=== PATIENT | female | born 1975 | race Caucasian/White ===

== ENCOUNTER 2020-12-29 14:36 | Outpatient (REF) | payer OTHER, SELFPAY ==
--- NOTE | ~2020-12-29 | MM_ITS ---
EXAMINATION: MM SCREENING DIGITAL BREAST TOMOSYNTHESIS, BILATERAL CLINICAL INFORMATION: Screening. Asymptomatic. The lifetime risk of breast cancer based on the Tyrer-Cuzick Model is 9.1%. COMPARISON: Mammography: February 26, 2019 and studies dating back to January 18, 2014 TECHNIQUE: Digital breast tomosynthesis is performed in both the craniocaudal and mediolateral oblique views along with computer-aided detection (CAD). Synthesized 2D images are generated from the tomosynthesis. FINDINGS: There are scattered areas of fibroglandular density (ACR BI-RADS breast composition Category b). There are no significant masses, abnormal calcifications, or other abnormalities. MM/MM tomosynthesis screening BI IMPRESSION: There are no significant changes from prior study. ASSESSMENT: BI-RADS 1: Negative RECOMMENDATION: Routine annual mammography screening. This patient's information was entered into a reminder system with a target due date for their next mammogram.
== END 2020-12-29 14:37 | disposition home or self-care (01) ==
LOC: HO.MAMMO 14:36
PROVIDERS: Visit Provider Internal Medicine Geriatric Medicine
DX: Z12.31 Encounter for screening mammogram for malignant neoplasm of breast (principal)
CPT/HCPCS: 77063; 77067

== ENCOUNTER 2022-08-25 10:00 | Outpatient (REF) | payer OTHER, SELFPAY ==
--- NOTE | ~2022-08-25 | MM_ITS ---
EXAMINATION: MM SCREENING DIGITAL BREAST TOMOSYNTHESIS, BILATERAL CLINICAL INFORMATION: Screening. Asymptomatic. The lifetime risk of breast cancer based on the Tyrer-Cuzick Model is 7%. COMPARISON: Mammography: 12/29/2020, 02/26/2019, 03/07/2017, 01/24/2016 TECHNIQUE: Digital breast tomosynthesis is performed in both the craniocaudal and mediolateral oblique views along with computer-aided detection (CAD). Synthesized 2D images are generated from the tomosynthesis. FINDINGS: There are scattered areas of fibroglandular density (ACR BI-RADS breast composition Category b). There are no significant masses, abnormal calcifications, or other abnormalities. Parenchymal pattern is similar to prior studies. There is no developing density or architectural abnormality. There are scattered minor asymmetries similar to prior studies. The axilla and skin contours are unremarkable. No significant changes. MM/MM tomosynthesis screening BI IMPRESSION: -No significant changes from prior studies. -No mammographic evidence of malignancy. ASSESSMENT: BI-RADS 2: Benign RECOMMENDATION: Routine annual mammography screening. This patient's information was entered into a reminder system with a target due date for their next mammogram.
== END 2022-08-25 10:01 | disposition home or self-care (01) ==
LOC: HO.MAMMO 10:00
PROVIDERS: PCP Internal Medicine Geriatric Medicine; Visit Provider Internal Medicine Geriatric Medicine
DX: Z12.31 Encounter for screening mammogram for malignant neoplasm of breast (principal)
CPT/HCPCS: 77063; 77067

== ENCOUNTER 2022-12-28 13:08 | Outpatient (REF) | payer OTHER, SELFPAY ==
--- NOTE | ~2022-12-28 | XR_ITS ---
EXAMINATION: XR KNEE, BILATERAL CLINICAL INFORMATION: Chronic pain of both knees. COMPARISON: X-ray of the left knee May 2016. TECHNIQUE: 4 views of each knee. FINDINGS: RIGHT KNEE: Patellofemoral Compartment: There are marginal osteophytes without joint space narrowing indicative of mild osteoarthritis. The medial and lateral compartments are normal. No effusion. LEFT KNEE: Patellofemoral Compartment: There are marginal osteophytes without joint space narrowing indicative of mild osteoarthritis. Medial Compartment: There are marginal osteophytes with mild joint space narrowing indicative of uqtf-co-qtxqjhpl osteoarthritis. Lateral Compartment: Small marginal osteophytes without joint space narrowing indicative of mild arthrosis. Possible subchondral cysts in the weightbearing lateral femoral condyle. Overall degenerative changes, slightly progressed compared to prior. XR/XR knee RT 4V IMPRESSION: 1. Mild osteoarthritis of the right knee. 2. Ovlf-da-nufshhke osteoarthritis of the left knee. Degenerative changes, slightly progressed compared with the 2017 examination.
--- NOTE | ~2022-12-28 | XR_ITS ---
EXAMINATION: XR KNEE, BILATERAL CLINICAL INFORMATION: Chronic pain of both knees. COMPARISON: X-ray of the left knee May 2016. TECHNIQUE: 4 views of each knee. FINDINGS: RIGHT KNEE: Patellofemoral Compartment: There are marginal osteophytes without joint space narrowing indicative of mild osteoarthritis. The medial and lateral compartments are normal. No effusion. LEFT KNEE: Patellofemoral Compartment: There are marginal osteophytes without joint space narrowing indicative of mild osteoarthritis. Medial Compartment: There are marginal osteophytes with mild joint space narrowing indicative of pgil-ff-pozjdprr osteoarthritis. Lateral Compartment: Small marginal osteophytes without joint space narrowing indicative of mild arthrosis. Possible subchondral cysts in the weightbearing lateral femoral condyle. Overall degenerative changes, slightly progressed compared to prior. XR/XR knee LT 4V IMPRESSION: 1. Mild osteoarthritis of the right knee. 2. Elsl-gr-lwkjrece osteoarthritis of the left knee. Degenerative changes, slightly progressed compared with the 2017 examination.
[2022-12-30 13:41] LABS: H Pylori Breath Test Negative (Negative)
== END 2022-12-28 13:09 | disposition home or self-care (01) ==
LOC: HO.HHCX 13:08
PROVIDERS: Visit Provider Internal Medicine Geriatric Medicine
DX: K21.9 Gastro-esophageal reflux disease without esophagitis (principal); Z86.19 Personal history of other infectious and parasitic diseases; M25.561 Pain in right knee; M25.562 Pain in left knee; G89.29 Other chronic pain
CPT/HCPCS: 73564; 83013

== ENCOUNTER 2022-12-29 07:47 | Outpatient (REF) | payer OTHER, SELFPAY ==
[2022-12-29 09:04] LABS: Cholesterol 225 mg/dL (<200); HDL Cholesterol 61 mg/dL (>40); LDL Cholesterol Calculated 143 mg/dL (<100); Triglycerides 105 mg/dL (<150)
== END 2022-12-29 07:48 | disposition home or self-care (01) ==
LOC: HO.LAB 07:47
PROVIDERS: PCP Internal Medicine Geriatric Medicine; Visit Provider Internal Medicine Geriatric Medicine
DX: Z13.220 Encounter for screening for lipoid disorders (principal); Z13.6 Encounter for screening for cardiovascular disorders
CPT/HCPCS: 36415; 80061

== ENCOUNTER 2023-06-13 10:41 | Outpatient (REF) | payer OTHER, SELFPAY ==
[2023-06-16 07:43] LABS: TS Negative Control Passed; TS Panel A 0; TS Panel B 0; TS Positive Control Passed; TSpotTB Negative (Negative)
== END 2023-06-13 10:42 | disposition home or self-care (01) ==
LOC: HO.HHCL 10:41
PROVIDERS: Visit Provider Internal Medicine
DX: Z20.1 Contact with and (suspected) exposure to tuberculosis (principal)
CPT/HCPCS: 36415; 86481

== ENCOUNTER 2023-10-04 11:55 | Outpatient (REF) | payer OTHER, SELFPAY | END 2023-10-04 11:56 | disposition home or self-care (01) | LOC: HO.MAMMO 11:55 | PROVIDERS: PCP Internal Medicine Geriatric Medicine; Visit Provider Internal Medicine Geriatric Medicine | DX: Z12.31 Encounter for screening mammogram for malignant neoplasm of breast (principal) | CPT/HCPCS: 77063; 77067 ==

== ENCOUNTER → 2023-10-04 12:15 | Outpatient (BNV) | payer OTHER, SELFPAY | PROVIDERS: PCP Internal Medicine Geriatric Medicine; Visit Provider Radiology Diagnostic Radiology | DX: Z12.31 Encounter for screening mammogram for malignant neoplasm of breast (principal) | CPT/HCPCS: 77063; 77067 ==

== ENCOUNTER 2024-01-10 07:31 | Outpatient (REF) | payer OTHER, SELFPAY ==
[2024-01-10 08:40] LABS: Cholesterol 206 mg/dL (<200); HDL Cholesterol 56 mg/dL (>40); LDL Cholesterol Calculated 129 mg/dL (<100); Triglycerides 109 mg/dL (<150)
== END 2024-01-10 07:32 | disposition home or self-care (01) ==
LOC: HO.LAB 07:31
PROVIDERS: PCP Internal Medicine Geriatric Medicine; Visit Provider Internal Medicine Geriatric Medicine
DX: Z13.220 Encounter for screening for lipoid disorders (principal)
CPT/HCPCS: 36415; 80061

== ENCOUNTER 2024-09-04 13:04 | Outpatient (AMB) | payer OTHER, SELFPAY ==
[2024-09-04 13:08] VITALS: BP 144/72; PULSE 82; BMI 25.8
--- NOTE | 2024-09-04 13:08 | MHC.OFFVIS ---
Vital Signs 09/04/24 13:08 Height 4 ft 11 in Weight 127 lb 13.89 oz BMI 25.8 BP 144/72 H Blood Pressure Location Lt brachial Position Sitting Pulse 82 Intake Visit Reasons: [place] Screening Intake Note: Leslie presents in the office as a new patient for a colonoscopy screening. CC: She states that she is not having any issues at this time. Putty Mixer Required: Yes Putty Mixer Name: Bladimir [id number] Information Interpreted: non-clinical & clinical Allergies minoxidil Allergy (Severe, Verified 09/04/24 13:10) Rash Iodinated Contrast Media [IV Dye, Iodine Containing Contrast ] Allergy (Mild, Unverified 09/04/24 13:10) Isovue 370 - 85cc: PATIENT DEVELOPED HIVES ON FACE ct scan contrast Allergy (Unknown, Uncoded 09/04/24 13:10) swelling Medication List - Last Reconciled 09/04/24 by Renetta Ryan CNP [AminoMar C PO DAILY] HPI HPI [place] Screening: Details: Patient is a 49-year-old female with PMH of alopecia. Referred by PCP for pre colonoscopy screening. Leslie is here for a pre-colonoscopy screening, her first colonoscopy. She reports having daily bowel movements with no difficulty or straining. She does not experience loose stools unless after eating certain foods. She denies any blood in stool, heartburn, or chest pain. However, she sometimes has acid reflux triggered by certain foods, which is relieved by drinking milk or taking milk of magnesia. She denies regurgitation, difficulty swallowing, abdominal pain (except during menstrual cycle), nausea, vomiting, or fever. Vital signs indicate a mildly elevated BP at 144/72, likely due to physical activity before the appointment. Patient denies: appetite changes, regurgitation, dysphasia, unintentional wt loss, ab pain or melena/hematochezia. Social History -Alcohol/Tobacco/Drug Use: Minimal alcohol consumption, no tobacco or recreational drug use - family hx as below -denies personal hx of CA -denies significant cardiopulmonary history -tolerated anesthesia in the past without difficulty. PFSH Medical History (Updated 09/04/24 @ 16:31 by Renetta Ryan CNP) Colon cancer screening Alopecia Family History (Updated 09/04/24 @ 13:41 by Renetta Ryan CNP) Father Stomach cancer Social History Household Members: None Alcohol intake: current Alcohol intake frequency: holidays/special occasions only Patient Tobacco Use Status: Never used Tobacco Review of Systems Const Reports as per [facility] ENT Reports as per HPI Card Reports as per HPI Resp Reports as per HPI GI Reports as per [facility] Reports as per HPI Physical Exam Vital Signs: Last Vital Signs Pulse 82 09/04/24 13:08 BP 144/72 H 09/04/24 13:08 BMI result Body Mass Index 25.8 Const General: healthy appearing, no acute distress and well developed Nutritional Appearance: well nourished Orientation/consciousness: patient oriented x3 HEENT Head: Yes normal to inspection, Yes normocephalic and Yes atraumatic Face and sinus: Yes normal facial exam Eyes General: appearance normal, both eyes and all related structures Neck Neck: Yes normal visual inspection Resp Effort & Inspection: normal respiratory effort, able to speak in complete sentences, no tracheal deviation and symmetric chest movement Auscultation: clear to auscultation bilaterally Cardio Jugular venous distension: no JVD Rate: regular rate Rhythm: regular rhythm Heart sounds: S1 normal heart sound present, S2 normal heart sound present, no gallops and no murmurs GI Inspection: Yes normal to inspection and No distended Palpation (GI): Soft to palpation, not firm, nontender and No hepatosplenomegaly present Auscultation: normal bowel sounds Neuro General: patient oriented x3 Gait exam (Neuro): Normal gait present Psych Appearance: grossly normal Mental Status: mental status grossly normal Speech and movement: Normal speech and movement present Affect: normal affect Attitude: cooperative Thought process: Normal thought process present Thought content: Normal thought content present Insight: Good insight present (Psych) Judgement: Good judgement present (Psych) Assessment & Plan Assessment & Plan (1) Colon cancer screening: Code(s): Z12.11 - Encounter for screening for malignant neoplasm of colon Category: Medical Plan: index screening colonoscopy. Diagnostic Tests: Prescriptions for laxative tablets and Miralax sent to pharmacy; instructions for Gatorade purchase and clear liquid diet given. Patient educated on procedure preparation, including avoiding certain foods and ensuring clear liquid intake. Advised on necessity for ride post-procedure due to sedation. Plan Follow-up as needed after colonoscopy Time: I spent a total of 30 minutes on the date of encounter which includes: Preparing to see the patient (reviewed previous documentation, test results and medical history) Performing a medically appropriate exam and/or evaluation Ordering medications, tests, and procedures Documenting clinical information in the health record Medications: New bisacodyl Take four tablets once for 1 day per colonoscopy instructions 5 mg PO ONCE 4 tabs 0RF 1 day polyethylene glycol 3350 (Miralax) per colonoscopy prep instructions 238 grams PO ONCE 238 grams 0RF Coding Level of Care Code New Pt New Pt Level 3 (41982) Patient Type New Diagnoses Colon cancer screening Z12.11
--- OUTSIDE RECORDS SUMMARY | 2024-09-04 13:14 | XMS_ITS | Clinical Summary ---
Author Organization [employer] Address [address] [place] [address] Care Team Providers Care Shallot Cleaner Name Role Phone Name, Guilherme TUCKER Primary Care Provider [phone] Allergies Active Allergy Reactions Criticality Noted Date Comments Minoxidil Rash Low 01/27/2020 Medications omeprazole OTC (PriLOSEC OTC) 20 MG EC tablet Take 1 tablet (20 mg) by mouth before breakfast. Do not crush, chew, or split. 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/2022 Nausea and vomiting 11/04/2017 Carpal tunnel syndrome 08/07/2016 Joint pain 01/24/2016 Depressive disorder 02/21/2012 Rosacea 02/21/2012 Immunizations Immunization Administration Dates Next Due Hep B, adult 01/10/2004,02/16/2003,09/21/2002 Influenza Injectable Quadriv alant Preservative Free IIV4 MDCK 01/22/2020 Influenza injectable quadriv alent preservative free 01/23/2021 TD (adult), 2 Lf tetanus tox oid, preservative free, adsorbed 09/21/2002 Td (adult), 5 Lf tetanus tox oid, preservative free, adsorbed 01/05/2013 Tdap 01/03/2024 Family History Medical History Relation Name Comments Stomach cancer Father Stomach cancer Paternal Grandmother Relation Name Status Comments Father Paternal Grandmother Social History Tobacco Use Types Packs/Day Years Used Date Smoking Tobacco: Never Passive Smoke Exposure: Never Smokeless Tobacco: Never Tobacco Cessation:Counseling Given: Not Answered Alcohol Use Standard Drinks/Week Comments Yes 0 (1 standard drink = 0.6 oz pur e alcohol) socially Depression Answer Date Recorded Patient Health Questionnaire-9 Score 0 08/14/2022 Housing Stability Answer Date Recorded What is your housing situation today? I have nathan benton 02/05/[address] you li ve. Do you have problems with any of the following? None of the above 02/05/2023 Food Insecurity Answer Date Recorded Within the past 12 months, y ou worried that your food would run out before you got money to buy more: Never True 02/05/2023 Within the past 12 months,th e food you bought just didn't last and you didn't have enough money to get more: Never True Transportation Answer Date Recorded In the past 12 months, has l ack of transportation kept you from medical appts, meetings, work or from getting things needed for daily living? No 02/05/2023 Utilities Answer Date Recorded In the past 12 months, has t he electric, gas, oil or water company threatened to shut off services in your home? No 02/05/2023 Depression Answer Date Recorded Patient Health Questionnaire-2 Score 0 08/14/2022 Comments No Sex and Gender Information Value Date Recorded Sex Assigned at Female 02/05/2022 10:16 AM EDT Legal Sex Female 10:16 AM EDT Gender Identity Female 02/05/2022 10:16 AM EDT Sexual Orientation Straight 02/05/2022 10 :16 AM EDT Last Filed Vital Signs Vital Sign Reading Time Taken Comments Blood Pressure 130/82 01/03/2024 12:09 PM EDT Pulse 74 01/03/2024 11:36 AM EDT Temperature 36.7 ??C (98.1 ??F) 01/03/2024 11:36 AM E DT Respiratory Rate 20 01/03/2024 11:36 AM EDT Oxygen Saturation 98% 01/03/2024 11:36 AM EDT Inhaled Oxygen Concentration - - Weight 56.8 kg (125 lb 3.2 oz) 01/03/2024 11:36 AM EDT Height 149.9 cm (4' 11 ) 01/03/2024 11:36 AM EDT Body Mass Index 25.29 01/03/2024 11:36 AM EDT Plan of Treatment Health Maintenance Due Date Last Done Comments CT Colonography 1974 Colonoscopy 1974 Colorectal Cancer Screening 1974 FIT DNA/Cologuard 1974 FIT 1974 FOBT 1974 HIV Screening 1974 Sigmoidoscopy 1974 Disability Screening 1974 Alcohol/Substance Use Screening 1986 Family Planning (PISQ) 1989 Hepatitis C Screening 01/12/1992 Depression Screening 08/15/2023 08/14/2022, 08/15/19 23 SDOH Screening 08/15/2023 08/14/2022 COVID-19 Vaccine ( season) 2023 03/28/2021, 07/16/2020 Influenza Vaccine (#1) 2023 01/23/2021, 2019 Pneumococcal Vaccine: 50+ Years (1 of 1 - PCV) 01/12/2024 Zoster Vaccines (1 of 2) 01/12/2024 Tobacco Screening 01/02/2025 01/03/2024 Pap Smear 08/28/2025 08/28/2022 Mammogram 10/03/2025 10/04/2023, 08/07, 08/25/2022, Additional history exists Cervical Cancer Screening 08/29/2027 HPV/Cotest 08/29/2027 08/28/2022 DTaP/Tdap/Td Vaccines (2 - Td or Tdap) 01/02/2034 01/03/2024, 01/05/2013, 09/21/2002 RSV Patients and Patients Aged 60 years or older (1 - 1-dose 75+ series) 2049 Hepatitis B Vaccines Completed 01/10/2004, 02/16/2003, 09/21/2002 HIB Vaccines Aged Out No longer eligi ble based on patient's age to complete this topic HPV Vaccines Aged Out No longer eligi ble based on patient's age to complete this topic Hepatitis A Vaccines Aged Out No long er eligible based on patient's age to complete this topic IPV Vaccines Aged Out No longer eligi ble based on patient's age to complete this topic Meningococcal B Vaccine Aged Out No l onger eligible based on patient's age to complete this topic Meningococcal Vaccine Aged Out No ann marie anthony eligible based on patient's age to complete this topic RSV under 20 months Aged Out No longe r eligible based on patient's age to complete this topic Rotavirus Vaccines Aged Out No longer eligible based on patient's age to complete this topic Procedures Procedure Name Priority Date/Time Associated Diagnosis Comments BI MAMMOGRAM SCREENING TOMOSYNTHESIS BILATERAL Routine 10/04/2023 12:14 PM EDT IMAGE-GUIDED PAP W/AGE BASED SCR PROTOCOLS Routine 08/28/2022 3:22 PM EDT Cervical cancer screening from Last 3 Months or Most Recently Relevant to Health Maintenance Results * BI Mammogram Screening Tomosynthesis Bilateral (10/04/2023 12:14 PM EDT) Anatomical Region Laterality Modality Breast Bilateral Mammography 10/04/2023 12:1 4 PM EDT Narrative 11/01/2023 11:21 AM EDT ? [facility] [place] ? [address] ?[place] [address] ? Mammography Report ? Signed ? Patient: Kaz CastroRositaLeslie ?MR#: M ?? [id number] ? : 1975 ?Acct:[id number] ? Age/Sex: 48 / F ?ADM Date: 06/28/24 ? Loc: HO.MAMMO ? Attending Dr: Guilherme Name MD ? Ordering Physician: Name,Guilherme MD ?Results: 1Negative ? Date of Service: 10/04/23 ?Follow Up: 1 Year From Orig ?? inal Mammogram ? Procedure(s): MM tomosynthesis screening BI ?? Accession Number(s): [id number] ? cc: Name,Guilherme TUCKER ? EXAMINATION: ?? MM SCREENING DIGITAL BREAST TOMOSYNTHESIS, BILATERAL ? CLINICAL INFORMATION: ? Screening. Asymptomatic. ? COMPARISON: ?? Mammography: This study is compared with prior exams dating back to ?? 2017. ? TECHNIQUE: ?? Digital breast tomosynthesis is performed in both the craniocaudal and ?? mediolateral oblique views along with computer-aided detection (CAD). ?? Synthesized 2D images are generated from the tomosynthesis. ? FINDINGS: ?? There are scattered areas of fibroglandular density (ACR BI-RADS breast ?? composition Category b). ? There are no significant masses, abnormal calcifications, or other ?? abnormalities. ? MM/MM tomosynthesis screening BI ?? IMPRESSION: ?? No mammographic evidence of malignancy. ? ASSESSMENT: ? BI-RADS BI-RADS 1 - Negative ? RECOMMENDATION: ?? Routine annual mammography screening. ? 1 year F/U ? This examination should not preclude the clinical evaluation of a ?? suspicious palpable abnormality. ? This patient's information was entered into a reminder system with a ?? target due date for their next mammogram. ? Dictated By: ?Melinda Stanton MD ? Signed By: ?<Electronically signed by Melinda Stanton MD in OV> ? 11/01/23 1117 ? DD/ 1214 ? TD/TT: ? [employer] Piping Designer: ? Procedure Note Esperanza, Image - 11/01/2023 [facility] [address] [place] [address] [place] [address] Mammography Report Signed Patient: Leslie Lofton#: M [id number] : 1975Acct:[id number] Age/Sex: 48 / FADM Date: 10/04/23 Loc: HO.MAMMO Attending Dr: Guilherme Harmon MD Ordering Physician: Guilherme Harmonesults: 1Negative Date of Service: 10/04/23Follow Up: 1 Year From Orig inal Mammogram Procedure(s): MM tomosynthesis screening BI Accession Number(s): [id number] cc: Guilherme Harmon MD EXAMINATION: MM SCREENING DIGITAL BREAST TOMOSYNTHESIS, BILATERAL CLINICAL INFORMATION: Screening. Asymptomatic. COMPARISON: Mammography: This study is compared with prior exams dating back to 2017. TECHNIQUE: Digital breast tomosynthesis is performed in both the craniocaudal and mediolateral oblique views along with computer-aided detection (CAD). Synthesized 2D images are generated from the tomosynthesis. FINDINGS: There are scattered areas of fibroglandular density (ACR BI-RADS breast composition Category b). There are no significant masses, abnormal calcifications, or other abnormalities. MM/MM tomosynthesis screening BI IMPRESSION: No mammographic evidence of malignancy. ASSESSMENT: BI-RADS BI-RADS 1 - Negative RECOMMENDATION: Routine annual mammography screening. 1 year F/U This examination should not preclude the clinical evaluation of a suspicious palpable abnormality. This patient's information was entered into a reminder system with a target due date for their next mammogram. Dictated By: Melinda Stanton MD Signed By: <Electronically signed by Melinda Stanton MD in OV> 11/01/23 1117 DD/ 1214 TD/TT: [employer] Piping Designer: Guilherme Harmon MD IM BI PROCEDURES Final Result * Image-Guided Pap with Age-Based Screening Protocols (08/28/2022 3:22 PM EDT) Comment [facility] Comment: This order for age-based cervical cancer and STI screening follows ACOG guidelines(PB 168, 140, VTV564). See individual assays for performing site location. Clinical Information: None given [facility] LMP: NONE GIVEN [facility] Prev. PAP: NONE GIVEN [facility] Prev. BX: NONE GIVEN [facility] SOURCE: None given [facility] Statement Of Adequacy: [facility] Comment: Satisfactory for evaluation. Endocervical/transformation zone component present. Interpretation/ Result: Negative for intraepithelial lesion or malignancy. [facility] Infection Shift in vaginal jeniffer suggestive of bacterial vaginosis. [employer] [facility] COMMENT: This Pap test has been evaluated with computer assisted technology. [employer] Cytotechnologis t: [facility] Comment: KR, CT(ASCP) CT screening location: [address] ??[address] (Always Message) [facility] Comment: EXPLANATORY NOTE: The Pap is a screening test for cervical cancer. It is not a diagnostic test and is subject to false negative and false positive results. It is most reliable when a satisfactory sample, regularly obtained, is submitted with relevant clinical findings and history, and when the Pap result is evaluated along with historic and current clinical information. HPV nRNA E6/E7 Not Detected Not Detected [facility] Comment: Methodology: Assistant Front End Manager-Mediated Amplification This assay detects E6/E7 viral messenger RNA (mRNA) from 14 high-risk HPV types (16,18,31,33,35,39,45,51,52,56,58,59,66,68). Cervical sources are required for HPV testing. If a vaginal source from a patient who has had a total hysterectomy with removal of cervix was submitted, please contact the testing laboratory for alternative testing options. For additional information, please refer to http://education.[employer]/faq/ZCK140e2 (This link if provided for information/ educational purposes only.) Pap Vial 08/28/2022 3:22 PM EDT 08/29/2022 1:29 PM EDT Smita [facility] LAB BLOOD ORDERABLES Whitney staples Result [employer] [address], [place] [address] [facility] [address] [place] [address] from Last 3 Months or Most Recently Relevant to Health Maintenance Insurance , [address] [place] [address] Care Teams Shallot Cleaner Relationship Specialty Start Date End Date Name, MD Guilherme [address] [place] [address] PCP - General Family Medicine 07/13/15
== END 2024-09-04 13:50 | disposition home or self-care (01) ==
PROVIDERS: PCP Internal Medicine Geriatric Medicine; Visit Provider Nurse Practitioner Family
DX: Z12.11 Encounter for screening for malignant neoplasm of colon (principal); Z01.818 Encounter for other preprocedural examination
CPT/HCPCS: 99203

== ENCOUNTER 2024-11-27 12:06 | Outpatient (REF) | payer OTHER, SELFPAY ==
--- NOTE | ~2024-11-27 | MM_ITS ---
EXAMINATION: MM SCREENING DIGITAL BREAST TOMOSYNTHESIS, BILATERAL CLINICAL INFORMATION: Screening. Asymptomatic. COMPARISON: Mammography: Comparison is made with available priors TECHNIQUE: Digital breast mammography with tomosynthesis is performed in both the craniocaudal and mediolateral oblique views along with computer-aided detection (CAD). FINDINGS: There are scattered areas of fibroglandular density (ACR BI-RADS breast composition Category b). There are no significant masses, abnormal calcifications, or other abnormalities. MM/MM tomosynthesis screening BI IMPRESSION: No mammographic evidence of malignancy. ASSESSMENT: BI-RADS BI-RADS 1 - Negative RECOMMENDATION: Routine annual mammography screening. 1 year F/U This examination should not preclude the clinical evaluation of a suspicious palpable abnormality. This patient's information was entered into a reminder system with a target due date for their next mammogram. Electronically signed by: Lyric Peterson DO 12/01/2024 06:52 PM EDT
--- OUTSIDE RECORDS SUMMARY | 2024-11-27 12:09 | XMS_ITS | Clinical Summary ---
Author Organization [employer] Address [address] [place] [address] Care Team Providers Care Four Slide Machine Setter Name Role Phone Name, Guilherme TUCKER Primary Care Provider [phone] Allergies Active Allergy Reactions Criticality Noted Date [...] 74 01/03/2024 11:36 AM EDT Temperature 36.7 C (98.1 F) 01/03/2024 11:36 AM EDT Respiratory Rate 20 01/03/2024 11:36 AM EDT Oxygen Saturation 98% 01/03/2024 11:36 AM EDT Inhaled Oxygen Concentration - - Weight 56.8 kg (125 lb 3.2 oz) 01/03/2024 11:36 AM EDT Height 149.9 cm (4' 11 ) 01/03/2024 11:36 AM EDT Body Mass Index 25.29 01/03/2024 11:36 AM EDT Plan of Treatment Upcoming Encounters Date Type Department Care Team (Late st Contact Info) Description 01/08/2025 2:45 PM EDT Office Visit [facility] [address] [place] [address] Name, MD Guilherme [address] [place] [address] Health Maintenance Due Date Last Done Comments CT Colonography 1974 Colonoscopy 1974 Colorectal Cancer Screening 1974 FIT DNA/Cologuard 1974 FIT 1974 FOBT 1974 HIV Screening 1974 Sigmoidoscopy 1974 Disability Screening 1974 Alcohol/Substance Use Screening 1986 Family Planning (PISQ) 1989 Hepatitis C Screening 01/12/1992 Depression Screening 08/15/2023 08/14/2022, 08/15/19 23 SDOH Screening 08/15/2023 08/14/2022 COVID-19 Vaccine ( season) 2023 03/28/2021, 07/16/2020 Pneumococcal Vaccine: 50+ Years (1 of 1 - PCV) 01/12/2024 Zoster Vaccines (1 of 2) 01/12/2024 Influenza Vaccine (#1) 2024 01/23/2021, 2019 Tobacco Screening 01/02/2025 01/03/2024 Pap Smear 08/28/2025 08/28/2022 Mammogram 10/03/2025 10/04/2023, 05/, 08/25/2022, Additional history exists Cervical Cancer Screening [...] Meningococcal Vaccine Aged Out No ann marie anthoyn eligible based on patient's age to complete [...] PM EDT Narrative 11/01/2023 11:21 AM EDT [facility] [address] [place] [address] Mammography Report Signed Patient: Leslie Lofton MR#: [id number] : 1975 Acct:[id number] Age/Sex: 48 / F ADM Date: 10/04/23 Loc: AMAYAO Attending Dr: Guilherme Harmon MD Ordering Physician: Guilherme Harmon MD Results: 1Negative Date of Service: 10/04/23 Follow Up: 1 Year From Orig inal Mammogram Procedure(s): MM tomosynthesis screening BI Accession Number(s): [id number] cc: Guilherme Harmon MD EXAMINATION: MM SCREENING [...] in OV> 11/01/23 1117 DD/ 1214 TD/TT: Tree Trimming Supervisor: Procedure Note Donotuseinterpreter, Image - 11/01/2023 [facility] [address] [place], [place] [address] Mammography Report Signed Patient: Leslie LoftonMR#: [id number] : 1975Acct:[id number] Age/Sex: 48 / FADM Date: 10/04/23 Loc: JUSTINO Attending Dr: Guilherme Harmon MD Ordering Physician: Guilherme Harmon MDResults: 1Negative Date of Service: 10/04/23Follow Up: 1 Year From Orig inal Mammogram Procedure(s): MM tomosynthesis screening BI Accession Number(s): [id number] cc: Guilherme Harmon MD EXAMINATION: MM SCREENING [...] in OV> 11/01/23 1117 DD/ 1214 TD/TT: Tree Trimming Supervisor: us Guilherme Name IMG BI PROCEDURES Final Result * Image-Guided Pap with Age-Based Screening Protocols (08/28/2022 3:22 PM EDT) Comment [employer] Comment: This order for age-based cervical cancer and STI screening follows ACOG guidelines(PB 168, 140, ZZJ285). See individual assays for performing site location. Clinical Information: None given [facility] LMP: NONE GIVEN [facility] Prev. PAP: NONE GIVEN [facility] Prev. BX: NONE GIVEN [facility] SOURCE: None given [facility] Statement Of Adequacy: [facility] Comment: Satisfactory for evaluation. Endocervical/transformation zone component present. Interpretation/ Result: Negative for intraepithelial lesion or malignancy. [employer] [facility] Infection Shift in vaginal jeniffer suggestive of bacterial vaginosis. [facility] COMMENT: This Pap test has been evaluated with computer assisted technology. [facility] Cytotechnologis t: [facility] Comment: KR, CT(ASCP) CT screening location: [place] [address] (Always Message) [employer] Comment: EXPLANATORY NOTE: The Pap is a [...] HPV nRNA E6/E7 Not Detected Not Detected [employer] [facility] Comment: Methodology: Screenplay Writer-Mediated Amplification This assay detects E6/E7 viral messenger RNA (mRNA) from 14 high-risk HPV types (16,18,31,33,35,39,45,51,52,56,58,59,66,68). Cervical sources are required for HPV testing. If a vaginal source from a patient who has had a total hysterectomy with removal of cervix was submitted, please contact the testing laboratory for alternative testing options. For additional information, please refer to http://education.Accountable/faq/EKW341o1 (This link if provided for information/ educational purposes only.) Pap Vial 08/28/2022 3:22 PM EDT 08/29/2022 1:29 PM EDT Smita BAUGH LAB BLOOD ORDERABLES Whitney staples Result [facility] [address], [place] [address] [facility] [address] [place] [address] from Last 3 Months or Most Recently Relevant to Health Maintenance Insurance [facility] Care Teams Four Slide Machine Setter Relationship Specialty Start Date End Date Name, MD Guilherme [address] [place] [address] PCP - General Family Medicine 07/13/15
== END 2024-11-27 12:07 | disposition home or self-care (01) ==
LOC: HO.MAMMO 12:06
PROVIDERS: PCP Internal Medicine Geriatric Medicine; Visit Provider Internal Medicine Geriatric Medicine
DX: Z12.31 Encounter for screening mammogram for malignant neoplasm of breast (principal)
CPT/HCPCS: 77063; 77067

== ENCOUNTER → 2024-11-27 12:30 | Outpatient (BNV) | payer OTHER, SELFPAY | PROVIDERS: PCP Internal Medicine Geriatric Medicine; Visit Provider Internal Medicine | DX: Z12.31 Encounter for screening mammogram for malignant neoplasm of breast (principal) | CPT/HCPCS: 77063; 77067 ==

== ENCOUNTER 2025-01-15 07:26 | Outpatient (REF) | payer OTHER, SELFPAY ==
--- OUTSIDE RECORDS SUMMARY | 2025-01-15 07:29 | XMS_ITS | Clinical Summary ---
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 Nausea and vomiting 11/04/2017 Carpal tunnel syndrome 08/07/2016 Joint pain 01/24/2016 Depressive disorder 02/21/2012 Rosacea 02/21/2012 Encounters Date Type Department Care Team Description 01/08/2025 2:45 PM EDT Office Visit [facility] [address] [place] [address] Guilherme Harmon MD PE (physical exam), routine (Primary Dx); Hypertension, unspecified type; Vaccination refused by patient; Venous insufficiency; Screening for diabetes mellitus; Screening for cholesterol level; Need for hepatitis C screening test; Screening examination for STI 01/08/2025 Travel 01/07/2025 Telephone [facility] [address] [place] [address] Guilherme Harmon MD CHARTPREP 01/01/2025 Patient Outreach [facility] [address] [place] [address] Guilherme Harmon MD Pre-visit Planning (SDOH negative, Tobacco screening negative) 11/27/2024 Orders Only [facility] [address] [place] [address] NameGuilherme MD from Last 3 Months Immunizations Immunization Administration Dates Next Due Hep B, adult 01/10/2004,02/16/2003,09/21/2002 Influenza Injectable Quadriv alant Preservative Free IIV4 MDCK 01/22/2020 Influenza injectable quadriv alent preservative free 01/23/2021 TD (adult), 2 Lf tetanus tox oid, preservative free, adsorbed 09/21/2002 Td (adult), 5 Lf tetanus tox oid, preservative free, adsorbed 01/05/2013 Tdap 01/03/2024 Family History Medical History Relation Name Comments No Known Problems Brother Stomach cancer Father Hepatitis Mother Stomach cancer Paternal Grandmother No Known Problems Sister 1 No Known Problems Sister 2 Relation Name Status Comments Brother Alive Father Mother Paternal Grandmother Sister 1 Alive Sister 2 Alive Social History Tobacco Use Types Packs/Day Years Used Date Smoking Tobacco: Never Passive Smoke Exposure: Never Smokeless Tobacco: Never Tobacco Cessation:Counseling Given: Not Answered Alcohol Use Standard Drinks/Week Comments Not Currently 0 (1 standard drink = 0.6 oz pur e alcohol) socially Depression Answer Date Recorded Patient Health Questionnaire-9 Score 2 01/08/2025 Patient Health Questionnaire-9 Score 2 01/08/2025 Last PHQ-9: Questionnaire Data Not on file 1 Housing Stability Answer Date Recorded What is your housing situation today? I have nathan benton 01/01/[address] you li ve. Do you have problems with any of the following? None of the above 01/01/2025 Food Insecurity Answer Date Recorded Within the past 12 months, y ou worried that your food would run out before you got money to buy more: Never True 01/01/2025 Within the past 12 months,th e food you bought just didn't last and you didn't have enough money to get more: Never True Transportation Answer Date Recorded In the past 12 months, has l ack of transportation kept you from medical appts, meetings, work or from getting things needed for daily living? No 01/01/2025 Utilities Answer Date Recorded In the past 12 months, has t he electric, gas, oil or water company threatened to shut off services in your home? No 01/01/2025 Depression Answer Date Recorded Patient Health Questionnaire-2 Score 1 01/08/2025 Internet Access Answer Date Recorded Internet Access Q1 Yes 01/01/2025 Internet Access Q2 Not on file 01/01/2025 Comments No Sex and Gender Information Value Date Recorded Sex Assigned at Female 02/05/2022 10:16 AM EDT Legal Sex Female 10:16 AM EDT Gender Identity Female 02/05/2022 10:16 AM EDT Sexual Orientation Straight 02/05/2022 10 :16 AM EDT Last Filed Vital Signs Vital Sign Reading Time Taken Comments Blood Pressure 148/84 01/08/2025 2:33 PM EDT Pulse 78 01/08/2025 2:33 PM EDT Temperature 36.3 C (97.3 F) 01/08/2025 2:33 PM EDT Respiratory Rate 14 01/08/2025 2:33 PM EDT Oxygen Saturation 99% 01/08/2025 2: 33 PM EDT Inhaled Oxygen Concentration - - Weight 58.4 kg (128 lb 12.8 oz) 01/08/2025 2:33 PM EDT Height 149.9 cm (4' 11 ) 01/08/2025 2:33 PM EDT Body Mass Index 26.01 01/08/2025 2:33 PM EDT Plan of Treatment Upcoming Encounters Date Type Department Care Team (Late st Contact Info) Description 01/18/2025 3:00 PM EDT Telemedicine [facility] [address] [place] [address] Health Maintenance Due Date Last Done Comments CT Colonography 1974 Colonoscopy 1974 Colorectal Cancer Screening 1974 FIT DNA/Cologuard 1974 FIT 1974 FOBT 1974 HIV Screening 1974 Sigmoidoscopy 1974 Family Planning (PISQ) 1989 Hepatitis C Screening 01/12/1992 Pneumococcal Vaccine: 50+ Years (1 of 1 - PCV) 01/12/2024 Zoster Vaccines (1 of 2) 01/12/2024 COVID-19 Vaccine (3 - season) 2024 03/28/2021, 07/16/2020 Influenza Vaccine (#1) 2024 01/23/2021, 2019 Pap Smear 08/28/2025 08/28/2022 Alcohol/Substance Use Screening 01/08/2026 01/08/2025 Depression Screening 01/08/2026 01/08/2025, 01/09/20 25 Disability Screening 01/08/2026 01/08/2025 SDOH Screening 01/08/2026 01/08/2025 Tobacco Screening 01/08/2026 01/08/2025 Mammogram 11/27/2026 11/27/2024, 09/07, 08/25/2022, Additional history exists Cervical Cancer Screening 08/29/2027 HPV/Cotest 08/29/2027 08/28/2022 Lipid Panel 01/09/2029 01/10/2024, 12/08, 11/10/2020 DTaP/Tdap/Td Vaccines (2 - Td or Tdap) [...] Comments BI MAMMOGRAM SCREENING TOMOSYNTHESIS BILATERAL Routine 11/27/2024 12:10 PM EDT LIPID PANEL, STANDARD Routine 01/10/2024 7:37 AM EDT Screening for cholesterol level IMAGE-GUIDED PAP W/AGE BASED SCR PROTOCOLS Routine 08/28/2022 3:22 PM EDT Cervical cancer screening from Last 3 Months or Most Recently Relevant to Health Maintenance Results * BI Mammogram Screening Tomosynthesis Bilateral (11/27/2024 12:10 PM EDT) Anatomical Region Laterality Modality Breast Bilateral Mammography 11/27/2024 12:1 0 PM EDT Narrative 12/01/2024 6:55 PM EDT [address] [place] [address] Mammography Report Signed Patient: Leslie Lofton MR#: [id number] : 1975 Acct:[id number] Age/Sex: 49 / F ADM Date: 11/27/24 Loc: HO.MAMMO Attending Dr: Guilherme Harmon MD Ordering Physician: Guilherme Harmon MD Results: 1Negative Date of Service: 11/27/24 Follow Up: 1 Year From Orig inal Mammogram Procedure(s): MM tomosynthesis screening BI Accession Number(s): [id number] cc: Guilherme Harmon MD EXAMINATION: MM SCREENING DIGITAL BREAST TOMOSYNTHESIS, BILATERAL CLINICAL INFORMATION: Screening. Asymptomatic. COMPARISON: Mammography: Comparison is made with available priors TECHNIQUE: Digital breast mammography with tomosynthesis is performed in both the craniocaudal and mediolateral oblique views along with computer-aided detection (CAD). FINDINGS: There are scattered areas of fibroglandular [...] target due date for their next mammogram. Electronically signed by: Lyric Peterson DO 12/01/2024 06:52 PM EDT RP Dictated By: Lyric Peterson DO Signed By: <Electronically signed by Lyric Peterson DO in OV> 12/01/24 1852 DD/ 1210 TD/TT: 11/27/24 1219 Ferryboat Operator Helper: Procedure Note Donotuseinterpreter, Image - 12/01/2024 [facility] [address] [place] [address] Mammography Report Signed Patient: Leslie Lofton#: M [id number] : 1975Acct:[id number] Age/Sex: 49 / FADM Date: 11/27/24 Loc: HO.MAMMO Attending Dr: Guilherme Harmon MD Ordering Physician: Guilherme Harmon MDResults: 1Negative Date of Service: 11/27/24Follow Up: 1 Year From Orig inal Mammogram Procedure(s): MM tomosynthesis screening BI Accession Number(s): [id number] cc: Guilherme Harmon MD EXAMINATION: MM SCREENING DIGITAL BREAST TOMOSYNTHESIS, BILATERAL CLINICAL INFORMATION: Screening. Asymptomatic. COMPARISON: Mammography: Comparison is made with available priors TECHNIQUE: Digital breast mammography with tomosynthesis is performed in both the craniocaudal and mediolateral oblique views along with computer-aided detection (CAD). FINDINGS: There are scattered areas of fibroglandular [...] target due date for their next mammogram. Electronically signed by: Lyric Peterson DO 12/01/2024 06:52 PM EDT RP Dictated By: Lyric Peterson DO Signed By: <Electronically signed by Lyric Peterson DO in OV> 12/01/24 1852 DD/ 1210 TD/TT: 11/27/24 1219 Ferryboat Operator Helper: us Guilherme Harmon MD IMG BI PROCEDURES Final Result * (ABNORMAL) Lipid Panel, Standard (01/10/2024 7:37 AM EDT) Triglycerides 109 <150 mg/dL [facility] Comment:Desirable Triglyceri de: less than 150 mg/dLBorderline High Triglyceride 150-199 mg/dLHigh Triglyceride: 200-499 mg/dLVery High Triglyceride: greater than or equal to 5OO mg/dL Cholesterol 206(H) <200 mg/dL [facility] Comment:Desirable Cholestero l: less than 200 mg/dLBorderline High Cholesterol: 200-239 mg/dLHigh Cholesterol: greater than 239 mg/dL LDL Cholesterol Calculated 129(H) <100 mg/dL [facility] Comment:Desirable LDL: less than 100 mg/dLNear Optimal/Above Optimal LDL: 110- 129 mg/dLBorderline High LDL: 130-159 mg/dLHigh LDL: 160-189 mg/dLVery High LDL: greater than or equal to 190 mg/dL HDL Cholesterol 56 >40 mg/dL [facility] Comment:Desirable HDL: great er than 40 mg/dL Note: This HDL assay may give artificially low results in patients with liver disease. Blood Venous blood specimen / Unknown 01/10/2024 7:37 AM EDT 01/10/2024 7:37 AM EDT us Guilherme Harmon MD LAB BLOOD ORDERABLES Final Resul t [facility] [address] [place] [phone] * Image-Guided Pap with Age-Based Screening Protocols (08/28/2022 3:22 PM EDT) Comment [facility] Comment: This order for age-based cervical cancer and STI screening follows ACOG guidelines(PB 168, 140, LKY269). See individual assays for performing site location. Clinical Information: None given [facility] LMP: NONE GIVEN [facility] Prev. PAP: NONE GIVEN [facility] Prev. BX: NONE GIVEN [facility] SOURCE: None given [facility] Statement Of Adequacy: [facility] Comment: Satisfactory for evaluation. Endocervical/transformation zone component present. Interpretation/ Result: Negative for intraepithelial lesion or malignancy. [facility] Infection Shift in vaginal jeniffer suggestive of bacterial vaginosis. [facility] COMMENT: This Pap test has been evaluated with computer assisted technology. [facility]: [facility] Comment: KR, CT(ASCP) CT screening location: [place] [address] (Always Message) [facility] Comment: EXPLANATORY NOTE: The Pap is a [...] HPV nRNA E6/E7 Not Detected Not Detected [facility] Comment: Methodology: Information Systems Security Manager-Mediated Amplification This assay detects E6/E7 viral messenger RNA (mRNA) from 14 high-risk HPV types (16,18,31,33,35,39,45,51,52,56,58,59,66,68). Cervical sources are required for HPV testing. If a vaginal source from a patient who has had a total hysterectomy with removal of cervix was submitted, please contact the testing laboratory for alternative testing options. For additional information, please refer to http://education.Solaria/faq/QQV606u3 (This link if provided for information/ educational purposes only.) Pap Vial 08/28/2022 3:22 PM EDT 08/29/2022 1:29 PM EDT Smita Goldman CN LAB BLOOD ORDERABLES Whitney bel Result [facility] [address], [place] [address] [facility] [address] [place] [address] from Last 3 Months or Most Recently Relevant to Health Maintenance Insurance , [address] [place] [address] Care Teams Prefitter Doors Relationship Specialty Start Date End Date Name, MD Guilherme [address] [place] [id number] PCP - General Family Medicine 07/13/15
[2025-01-15 07:38] LABS: MANUAL DIFF FLAG NO
[2025-01-15 07:44] LABS: Hematocrit 39.3 % (37.0-47.0); Hemoglobin 13.3 g/dl (12.0-16.0); Imm Gran Abs Auto 0.04 X10*3/uL (0.00-0.03); Imm Gran Pct Auto 0.7 % (0.0-0.4); Lymphocytes Absolute Auto 2.8 X10*3/uL (1.2-4.9); Mean Corpuscular HGB Conc 33.8 g/dl (31.0-35.0); Mean Corpuscular Hemoglobin 27.7 pg (27.0-33.0); Mean Corpuscular Volume 81.7 fL (80.0-98.0); NRBC Abs Auto 0.000 X10*3/uL (0.0-0.012); NRBC Pct Auto 0.0 /100WBC (0.0-0.2); Platelet Count 364 X10*3/uL (160-400); Red Blood Count 4.81 X10*6/uL (4.20-5.50); White Blood Count 5.8 X10*3/uL (4.8-10.8)
[2025-01-15 08:28] LABS: Alanine Aminotransferase 21 U/L (0-31); Albumin Level 4.8 g/dL (3.5-5.0); Alkaline Phosphatase 92 U/L (39-117); Anion Gap 11 (12-20); Aspartate Amino Transferase 21 U/L (5-31); Blood Urea Nitrogen 9 mg/dL (9-16); Calcium 9.5 mg/dL (8.4-10.2); Carbon Dioxide 27 mmol/L (22-29); Chloride 108 mmol/L (96-108); Cholesterol 235 mg/dL (<200); Estimated Glomerular Filt Rate > 60; HDL Cholesterol 55 mg/dL (>40); Potassium 3.8 mmol/L (3.3-5.1); Sodium 142 mmol/L (135-145); Total Protein 7.9 g/dL (6.5-8.0); Triglycerides 119 mg/dL (<150)
[2025-01-15 09:54] LABS: HBS Num1 > 1000.00 mIU/mL (0-7.99); HBsAGNum1 0.56 S/CO (0.00-0.99); HIV Num 1 0.07 S/CO (0.00-0.99); Hepatitis B Surface Antigen Negative (Negative); ~HepC Num1 0.12 S/CO (0.00-0.79); ~Hepatitis B Surface Antibody REACTIVE (Nonreactive); ~Hepatitis C Antibody Nonreactive (Nonreactive)
== END 2025-01-15 07:27 | disposition home or self-care (01) ==
LOC: HO.LAB 07:26
PROVIDERS: PCP Internal Medicine Geriatric Medicine; Visit Provider Internal Medicine Geriatric Medicine
DX: Z13.1 Encounter for screening for diabetes mellitus (principal); Z11.3 Encounter for screening for infections with a predominantly sexual mode of transmission; Z11.59 Encounter for screening for other viral diseases; Z13.220 Encounter for screening for lipoid disorders; Z13.6 Encounter for screening for cardiovascular disorders; Z11.4 Encounter for screening for human immunodeficiency virus [HIV]
CPT/HCPCS: 36415; 80053; 80061; 85025; 86592; 86706; 86803; 87340; 87389

== ENCOUNTER 2025-03-26 12:01 | Day surgery (SDC) | payer OTHER, SELFPAY ==
--- NOTE | 2025-03-23 09:47 | P.CONAN_ITS ---
Documented by User: Veronica Abbott NP 03/23/25 09:47 HPI - Anesthesia Eval Consult details Narrative: 50yo F for Colonoscopy [facility] Active Problems Active Problems: All Active Problems Colon cancer screening (Acute) Past Medical History Medical History Colon cancer screening Alopecia Family History Family History (Updated 09/04/24 @ 13:41 by Renetta Ryan CNP) Father Stomach cancer Surgical History Surgical History (Updated 03/26/25 @ 13:22 by Clemencia Sethi, RN) History of esophagogastroduodenoscopy (EGD) History of bilateral tubal ligation Social History Social History Household Members: None Are you a primary behavioral health care manager to a significant other at home: No Do you presently have visiting nurse or other home services: No Alcohol intake: current Alcohol intake frequency: holidays/special occasions only Patient Tobacco Use Status: Never used Tobacco Have you been hit, kicked, punched, or otherwise hurt by someone within the past year? If so, by whom?: No Are you DNR?: No Advance Directives: No Advance Directives Information Provided: Yes Meds Allergies Allergy/AdvReac Type Severity Reaction Status Date / Time minoxidil Allergy Severe Rash Verified 03/26/25 12:57 Iodinated Contrast Media (IV Allergy Mild Isovue 370 Verified 03/26/25 12:57 Dye, Iodine Containing - 85cc: Contrast ) PATIENT DEVELOPED HIVES ON FACE ct scan contrast Allergy Unknown swelling Uncoded 03/26/25 12:57 Home Medications ?Medication ?Instructions ?Recorded ?Confirmed ?Last Taken ?Type AminoMar C PO DAILY alopecia 09/04/24 0 09/04/24 Unknown History Assessment and Plan Assessment Anesthesia Assessment: Chart Reviewed Documented by User: Laila Liz MD 03/26/25 13:27 [facility] Past Medical History Medical History Colon cancer screening Alopecia Family History Family History (Updated 09/04/24 @ 13:41 by Renetta Ryan CNP) Father Stomach cancer Family history of problems with anesthesia: No Surgical History Surgical History (Updated 03/26/25 @ 13:22 by Clemencia Sethi RN) History of esophagogastroduodenoscopy (EGD) History of bilateral tubal ligation History of Problems with Anesthesia: No Social History Social History Household Members: None Are you a primary behavioral health care manager to a significant other at home: No Do you presently have visiting nurse or other home services: No Alcohol intake: current Alcohol intake frequency: holidays/special occasions only Patient Tobacco Use Status: Never used Tobacco Have you been hit, kicked, punched, or otherwise hurt by someone within the past year? If so, by whom?: No Are you DNR?: No Advance Directives: No Advance Directives Information Provided: Yes Meds Allergies Allergy/AdvReac Type Severity Reaction Status Date / Time minoxidil Allergy Severe Rash Verified 03/26/25 12:57 Iodinated Contrast Media (IV Allergy Mild Isovue 370 Verified 03/26/25 12:57 Dye, Iodine Containing - 85cc: Contrast ) PATIENT DEVELOPED HIVES ON FACE ct scan contrast Allergy Unknown swelling Uncoded 03/26/25 12:57 Home Medications ?Medication ?Instructions ?Recorded ?Confirmed ?Last Taken ?Type AminoMar C PO DAILY alopecia 09/04/24 0 09/04/24 Unknown History Exam Airway Mallampati Class: II (implants laterally, crown top front) TM Dist: >3cm Neck ROM: Full Heart: rrr Lungs: cta Assessment and Plan Assessment Anesthesia Assessment: Anesthesia Plan Discussed Final Anesthetic Review Family History of Problems with Anesthesia: No History of Problems with Anesthesia: No NPO: Yes ASA Class: II Final Preanesthetic Review: No Changes in Pt Med Stat, Meds/Allgs Chart Reviewed and Consent Obtained/Reviewed Patient Risk: Low Procedure Risk: Intermediate Anesthetic Plan Anesthetic Plan: MAC: Disposition: Standard PACU
[2025-03-24 14:32] VITALS: BMI 25.8
[2025-03-26 13:23] VITALS: BP 138/95; PULSE 82; RESP 18; TEMP 36.7; O2SAT 100
--- NOTE | 2025-03-26 13:25 | MHC.SHP ---
Pre-Procedural Eval Section A - 24 Hr Update-Section A only Date of Service: 03/26/25 Section B - Complete if H&P > 30 days Chief Complaint: Fam hx of gastric ca, screening Details of Present Illness: Colon cancer screening Alopecia Family History (Updated 09/04/24 @ 13:41 by Renetta Ryan CNP) Father Stomach cancer Present Medications: see Short Stay Collaborative assessment Allergies: Allergies Allergy/AdvReac Type Severity Reaction Status Date / Time minoxidil Allergy Severe Rash Verified 03/26/25 12:57 Iodinated Contrast Media (IV Allergy Mild Isovue 370 Verified 03/26/25 12:57 Dye, Iodine Containing - 85cc: Contrast ) PATIENT DEVELOPED HIVES ON FACE ct scan contrast Allergy Unknown swelling Uncoded 03/26/25 12:57 Review of Systems Review of Systems Comment: 10 point ROS negative Exam Exam Comment: Gen appear: No acute distress HEENT: no icterus Chest: No overt resp distress Abd: soft, nontender, nondistended Psych: Stable affect, answering questions appropriately Neuro: A/Ox3 noted to move all extremities spontaneously Ext: no peripheral edema Plan Diagnosis/Plan: Unchanged I have reviewed the history and physical and performed a pertinent physical examination on my patient. No changes have occurred unless specified. Time Spent With Patient Time: Total time managing care of this patient today ____ minutes.
--- NOTE | 2025-03-26 15:02 | P.OPN-COLO_ITS ---
Colonoscopy Operative Note Operative Note Date of Service: 03/26/25 Narrative: Procedure: Upper endoscopy and colonoscopy Indication: Fam hx of gastric ca, screening Endoscopist: Vashti Amador MD Anesthesia Provider: Dr Laila Stout Anesthesia type: MAC Instrument: [id number] and [id number]-[id number] EGD Procedure:?? The procedure, indications, preparation and potential complications were reviewed with the patient, who indicated understanding and gave written informed consent to proceed. The endoscope was introduced through the mouth, and advanced to the 2nd part of the duodenum. The mucosa was carefully examined on slow withdrawal of the endoscope. The patient tolerated the procedure well. There were no immediate complications.? EGD Findings:? * Esophagus:?Small erosions measuring 2-3 mm at GE junction. The Z-line was at 35 cm. * Stomach:? Mild erythema in gastric body and antrum. Retroflexion was performed in the cardia. Cold forceps biopsies were taken for gastric mapping as per Danae protocol. * Duodenum:? Normal duodenal mucosa. Colonoscopy Procedure:? The patient was then turned for the colonoscopy. A digital rectal exam was performed which was normal.? A distal attachment cap was affixed to the tip of the scope and the colonoscope was then inserted through the anus and advanced through the colon and advanced to the cecum at 80 cm.? Appendiceal orifice and ileocecal valve were identified. Mucosa was carefully examined under high definition white light as the instrument was slowly withdrawn in a retrograde panoramic fashion. Retroflexion was performed in rectum. The procedure was not difficult. The quality of the prep was BBPS: 2+2+3 = adequate Withdrawal time 8 minutes Limitations: No limitations Findings: Mucosa: Normal colon mucosa. Protruding lesions: * Small internal hemorrhoids without stigmata of recent bleeding. Excavated lesions: * Mild to moderate diverticulosis in sigmoid colon. Impression: 1. Grade A esophagitis 2. Gastritis (biopsy) 3. Normal duodenum 4. Normal colonmucosa 5. Diverticulosis 6. Internal hemorrhoids Recommendations:?? * Follow-up path results * Avoid NSAIDs * H Pylori treatment if biopsies + * Start omeprazole 20 mg once daily x 8-12 weeks. * Repeat colonoscopy for CRC screening in 10 years.
[2025-03-26 15:05] VITALS: BP 159/64; PULSE 85; RESP 18; TEMP 36.1; O2SAT 100
[2025-03-26 15:20] VITALS: BP 128/74; PULSE 76; RESP 18; O2SAT 100
[2025-03-26 15:35] VITALS: BP 141/80; PULSE 73; RESP 18; TEMP 36.2; O2SAT 100
== END 2025-03-26 15:51 | disposition home or self-care (01) ==
PROVIDERS: PCP Internal Medicine Geriatric Medicine; Visit Provider Internal Medicine
PROC: (CPT 45378; principal; 2025-03-26 14:10)
DX: Z12.11 Encounter for screening for malignant neoplasm of colon (principal); Z80.0 Family history of malignant neoplasm of digestive organs; K64.8 Other hemorrhoids; K57.30 Diverticulosis of large intestine without perforation or abscess without bleeding; K20.90 Esophagitis, unspecified without bleeding; K29.70 Gastritis, unspecified, without bleeding
CPT/HCPCS: 45378; 43239; 88305; 88342; J2003; J2704

== ENCOUNTER → 2025-03-26 12:01 | Outpatient (BNV) | payer OTHER, SELFPAY | PROVIDERS: PCP Internal Medicine Geriatric Medicine; Visit Provider Internal Medicine | DX: Z12.11 Encounter for screening for malignant neoplasm of colon (principal); K57.30 Diverticulosis of large intestine without perforation or abscess without bleeding; K64.8 Other hemorrhoids; K20.90 Esophagitis, unspecified without bleeding; K29.70 Gastritis, unspecified, without bleeding | CPT/HCPCS: 43239; 45378 ==